=== PATIENT | male | born 1965 | race American Indian/Alaskan Native ===

== ENCOUNTER 2020-11-06 15:45 | Emergency (ER) | payer SELFPAY ==
[2020-11-06 17:42] VITALS: BP 139/98
[2020-11-06] MEDS ORDERED: traMADol 50 MG TAB PO ONE (22:03)
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
== END 2020-11-07 00:25 | disposition home or self-care (01) ==
LOC: ED 15:45
DX: S39.012A Strain of muscle, fascia and tendon of lower back, initial encounter (principal); Z79.899 Other long term (current) drug therapy; V87.7XXA Person injured in collision between other specified motor vehicles (traffic), initial encounter; Y93.89 Activity, other specified; Y92.488 Other paved roadways as the place of occurrence of the external cause; Y99.8 Other external cause status
CPT/HCPCS: 72100; 99283